=== PATIENT | female | born 1970 | race Caucasian/White ===

== ENCOUNTER 2018-05-06 18:14 | Emergency (ER) | payer OTHER, SELFPAY ==
[2018-05-06 18:27] VITALS: BP 149/89; PULSE 99; RESP 18; TEMP 37.9; O2SAT 100; BMI 32.3
--- NOTE | 2018-05-06 18:52 | PC.NURSE ---
s/w pt and explained she would not get her tooth pulled here in the ED. Pt has appointment for tomorrow for same. Left w/o being seen
== END 2018-05-06 18:53 | disposition left against medical advice (07) ==
DX: K08.89 Other specified disorders of teeth and supporting structures (principal)
CPT/HCPCS: 99281; 99282